=== PATIENT | male | born 1930 | race Caucasian/White ===

== ENCOUNTER → 2016-07-17 | Outpatient (CLI) | payer BC ==
[~2016-07-17] MED LIST: BLOOD PRESSURE MED; CHOL100010 PO; CRD60 PO; CYAN500T PO; HYDC25 PO; RANITAB6 PO
[2016-07-17 13:32] LABS: BLOOD UREA NITROGEN 26 mg/dl (7-18); BUN/CREATININE RATIO 21.6 (10-20); CALCIUM 9.1 mg/dl (8.5-10.1); CARBON DIOXIDE 28 mmol/L (21-32); CHLORIDE 105 mmol/L (98-107); GLUCOSE 94 mg/dl (70-99); POTASSIUM 3.9 mmol/L (3.5-5.1); SODIUM 142 mmol/L (136-145)
[2016-07-17 13:37] LABS: PROSTATE SPECIFIC ANTIGEN 0.159 ng/ml (0.000-4.000)
== END | disposition home or self-care (01) ==
LOC: C.LABMFLN 11:45
PROVIDERS: ATTEND Family Medicine
DX: R05 Cough (principal); J20.9 Acute bronchitis, unspecified; I10 Essential (primary) hypertension; C61 Malignant neoplasm of prostate

== ENCOUNTER → 2017-03-05 | Outpatient (CLI) | payer BC ==
[2017-03-05 14:22] LABS: BLOOD UREA NITROGEN 33 mg/dl (7-18); BUN/CREATININE RATIO 23.9 (10-20); CALCIUM 9.1 mg/dl (8.5-10.1); CARBON DIOXIDE 27 mmol/L (21-32); CHLORIDE 108 mmol/L (98-107); GLUCOSE 92 mg/dl (70-99); POTASSIUM 4.1 mmol/L (3.5-5.1); SODIUM 141 mmol/L (136-145)
[2017-03-05 14:32] LABS: PROSTATE SPECIFIC ANTIGEN 0.118 ng/ml (0.000-4.000); TOTAL IRON BINDING CAPACITY 267 mcg/dl (250-450)
== END | disposition home or self-care (01) ==
LOC: C.LABMFLN 08:48
PROVIDERS: ATTEND Family Medicine
DX: C61 Malignant neoplasm of prostate (principal); I10 Essential (primary) hypertension; R14.3 Flatulence; D64.9 Anemia, unspecified

== ENCOUNTER → 2017-10-21 | Outpatient (CLI) | payer BC ==
[2017-10-21 18:14] LABS: BLOOD UREA NITROGEN 25 mg/dl (7-18); CALCIUM 8.7 mg/dl (8.5-10.1); CARBON DIOXIDE 28 mmol/L (21-32); CREATININE 1.36 mg/dl (0.60-1.40); GLUCOSE 98 mg/dl (70-99); POTASSIUM 4.3 mmol/L (3.5-5.1); SODIUM 141 mmol/L (136-145)
== END | disposition home or self-care (01) ==
LOC: C.LABMFLN 13:19
PROVIDERS: ATTEND Family Medicine
DX: I50.9 Heart failure, unspecified (principal)